=== PATIENT | female | born 1950 | race Caucasian/White ===

== ENCOUNTER 2018-10-02 00:46 | Inpatient (IN) | payer MEDICAID, MEDICARE ==
[~2018-10-02] VITALS: Ht 162.6 cm; Wt 72.6 kg
[~2018-10-02 00:46] MED LIST: ASPI-1159 PO; LOSA50TA20 PO; METO-539 PO; NITR0.4T49 SL
[2018-10-02] MEDS ORDERED: SODIUM CHLORIDE 0.9% 1,000 ML IV ONE (02:22)
[2018-10-02] MEDS ORDERED: ONDANSETRON HCL 4MG/2ML INJ IV STA (02:22)
[2018-10-02] MEDS ORDERED: MECLIZINE 12.5MG TABLET PO ONE (02:30)
[2018-10-02 02:59] LABS: BASOPHILS % 0.7 % (0.0-2.0); EOSINOPHILS % 1.9 % (0.0-5.0); HEMATOCRIT. 39.6 % (36.0-48.0); HEMOGLOBIN. 13.4 g/dL (12.0-16.0); LYMPHOCYTES % 18.5 % (20.0-50.0); MEAN CORPUSCULAR HEMOGLOBIN 31.6 pg (28.0-32.0); MEAN CORPUSCULAR VOLUME 93.4 fL (81.0-99.0); MEAN PLATELET VOLUME 8.2 fl (7.4-10.4); MONOCYTES % 7.1 % (2.0-8.0); NEUTROPHILS % 71.8 % (40.0-76.0); PLATELET 323 x1000/uL (130-400); RED BLOOD CELL COUNT 4.24 mill/uL (4.2-5.4); RED CELL DISTRIBUTION WIDTH 12.4 % (11.6-14.6)
[2018-10-02 03:08] LABS: CHLORIDE 109 mEq/L (98-107)
[2018-10-02] MEDS ORDERED: ACETAMINOPHEN 325MG TABLET PO PRN (07:45)
[2018-10-02] MEDS ORDERED: ONDANSETRON HCL 4MG/2ML INJ IV PRN (07:45)
[2018-10-02] MEDS ORDERED: NITROGLYCERIN 0.4MG TABLET SL SL PRN (07:45)
[2018-10-02] MEDS ORDERED: CLONIDINE 0.1MG TABLET PO PRN (07:45)
[2018-10-02] MEDS ORDERED: MAGNESIUM/ALUMINUM HYDROXIDE/SIMETHICONE 30ML UDC PO PRN (07:45)
[2018-10-02] MEDS ORDERED: GUAIFENESIN 200MG/10ML SUGAR FREE UDC PO PRN (07:45)
[2018-10-02] MEDS ORDERED: DOCUSATE SODIUM 100MG CAPSULE PO PRN (07:45)
[2018-10-02] MEDS ORDERED: IPRATROPIUM/ALBUTEROL 0.5-3(2.5)MG/3ML NEB INH PRN (07:45)
[2018-10-02] MEDS ORDERED: KETOROLAC 15MG/ML VIAL IV PRN (07:45)
[2018-10-02 13:00] LABS: T4 FREE 1.52 ng/dL (0.76-1.46)
[2018-10-02 13:28] LABS: FOLIC ACID (FOLATE) SERUM 19.1 ng/mL (>5.38)
[2018-10-02 13:48] VITALS: BP 128/79
[2018-10-02 14:00] VITALS: BP 128/79
[2018-10-02] MEDS: SODIUM CHLORIDE 0.9% 1,000 ML IV SCH (14:51)
[2018-10-02] MEDS: ASPIRIN 325MG EC TABLET PO SCH (15:01)
[2018-10-02] MEDS: ENOXAPARIN 40MG/0.4ML SYR SUBCUT SCH (15:03)
[2018-10-02 15:53] LABS: CREATINE KINASE 45 IU/L (26-192)
[2018-10-02 15:54] LABS: CREATINE KINASE MB FRACTION < 1.0 ng/mL (0.5-3.6)
[2018-10-02 16:00] VITALS: BP 127/78
[2018-10-02] MEDS ORDERED: LEVO137T32 PO (16:30)
[2018-10-02 18:00] VITALS: BP 123/67
[2018-10-02 20:00] VITALS: BP 116/60
[2018-10-02] MEDS ORDERED: ZOLPIDEM TARTRATE 5MG TABLET PO PRN (21:00)
[2018-10-02] MEDS: FAMOTIDINE 20MG TABLET PO SCH ×2 (21:00→21:20)
[2018-10-02 23:45] LABS: CREATINE KINASE 42 IU/L (26-192)
[2018-10-02 23:47] LABS: CREATINE KINASE MB FRACTION < 1.0 ng/mL (0.5-3.6)
[2018-10-03] VITALS: BP 119/57
[2018-10-03] MEDS: SODIUM CHLORIDE 0.9% 1,000 ML IV SCH (03:33)
[2018-10-03 03:40] VITALS: BP 113/65
[2018-10-03 08:00] VITALS: BP 118/63
[2018-10-03] MEDS: FAMOTIDINE 20MG TABLET PO SCH ×2 (08:45→09:00)
[2018-10-03] MEDS: ASPIRIN 325MG EC TABLET PO SCH (08:45)
[2018-10-03] MEDS: ENOXAPARIN 40MG/0.4ML SYR SUBCUT SCH ×2 (08:46→09:00)
== END 2018-10-03 12:40 | disposition home or self-care (01) | DRG 149 ==
LOC: ER 00:46 → 5WST 05:04 → EDBEDREQ 05:47 → EDBEDREQTM 05:47 → ENRESERV 09:16
PROVIDERS: ADMIT Internal Medicine; ATTEND Internal Medicine
DX: H81.10 Benign paroxysmal vertigo, unspecified ear (principal); E78.00 Pure hypercholesterolemia, unspecified; E83.51 Hypocalcemia; E83.52 Hypercalcemia; R26.2 Difficulty in walking, not elsewhere classified; I10 Essential (primary) hypertension; R73.03 Prediabetes; Z95.0 Presence of cardiac pacemaker; Z79.1 Long term (current) use of non-steroidal anti-inflammatories (NSAID); Z79.82 Long term (current) use of aspirin; Z79.899 Other long term (current) drug therapy; Z88.8 Allergy status to other drugs, medicaments and biological substances
CPT/HCPCS: 36415; 71045; 80061; 82550; 82553; 82607; 82746; 83036; 83540; 83550; 84439; 84443; 84484; 93005; 93970; 96361; 96374; 99285; J1650; J2405; J7030; J8597

== ENCOUNTER 2019-03-24 17:18 | Emergency (ER) | payer MEDICARE, OTHER ==
[~2019-03-24] VITALS: Ht 162.6 cm; Wt 80.0 kg
[~2019-03-24 17:18] MED LIST changes: -ASPI-1159 PO; +ASPI-1393 PO; +LEVO137T32 PO; -LOSA50TA20 PO; +LOSA50TA41 PO
[2019-03-24] MEDS ORDERED: LORAZEPAM 2MG/ML CPJ IV ONE (18:15)
[2019-03-24] MEDS ORDERED: KETOROLAC 15MG/ML VIAL IV ONE (18:15)
[2019-03-24 18:34] LABS: CHLORIDE 110 mEq/L (98-107)
[2019-03-24 18:41] LABS: BASOPHILS % 0.7 % (0.0-2.0); EOSINOPHILS % 4.1 % (0.0-5.0); HEMATOCRIT. 41.3 % (36.0-48.0); LYMPHOCYTES % 31.7 % (20.0-50.0); MEAN CORPUSCULAR HEMOGLOBIN 31.2 pg (28.0-32.0); MEAN CORPUSCULAR VOLUME 91.8 fL (81.0-99.0); MEAN PLATELET VOLUME 8.6 fl (7.4-10.4); MONOCYTES % 9.7 % (2.0-8.0); NEUTROPHILS % 53.8 % (40.0-76.0); PLATELET 350 x1000/uL (130-400); RED BLOOD CELL COUNT 4.49 mill/uL (4.2-5.4); RED CELL DISTRIBUTION WIDTH 13.2 % (11.6-14.6)
[2019-03-24 22:34] VITALS: BP 131/73
== END 2019-03-24 22:38 | disposition home or self-care (01) ==
LOC: ER 17:18
DX: R07.89 Other chest pain (principal); E78.00 Pure hypercholesterolemia, unspecified; I10 Essential (primary) hypertension; Z95.0 Presence of cardiac pacemaker; Z79.82 Long term (current) use of aspirin; Z79.899 Other long term (current) drug therapy; Z88.6 Allergy status to analgesic agent
CPT/HCPCS: 36415; 71045; 80053; 83880; 84484; 85025; 93005; 96374; 96375; 99284; J1885; J2060